=== PATIENT | male | born 1930 | race Asian ===

== ENCOUNTER 2016-07-27 12:34 | Emergency (ER) | payer MEDICARE, BC ==
[~2016-07-27] VITALS: Ht 170.2 cm; Wt 61.0 kg
[2016-07-27 12:39] VITALS: Ht 170.2 cm; Wt 61.0 kg
--- NOTE | 2016-07-27 16:15 | ERA ---
ER Documentation Chief Complaint Date/Time DATE: 07/27/16 TIME: 16:15 Chief Complaint syncopy x 3 days ago HPI The patient is a 85-year-old male, presenting to the ER because of a mechanical fall 3 days ago. He complains of left wrist pain and superficial abrasion on the upper lip. He did not have syncope. He denies fever, chills, neck pain, chest pain, dyspnea, abdominal pain, palpitation, diaphoresis, abdominal pain, dysuria, polyuria. He went to dialysis today where he was sent to the ER for further evaluation due to left wrist pain. He does not smoke, does not drink Past medical history: Chronic kidney disease, hypertension, CAD Past surgical history: CABG, bilateral cataract surgery, TURP ROS All systems reviewed and are negative except as per history of present illness. Physical Exam Vitals Vital Signs Date Time Temp Pulse Resp B/P Pulse Ox O2 Delivery O2 Flow Rate FiO2 07/27/16 17:59 62 18 167/74 100 Room Air 07/27/16 12:39 97.6 71 118 122/58 100 Physical Exam Const: No acute distress. Head: Atraumatic. Eyes: Normal Conjunctiva. ENT: Normal External Ears, Nose and Mouth. Superficial abrasion at the upper lip, no laceration Neck: Full range of motion. No meningismus. Resp: Clear to auscultation bilaterally. Cardio: Regular rate and rhythm, no murmurs. Abd: Soft, non distended, normal bowel sounds, non tender. Skin: No petechiae or rashes. Back: No midline or flank tenderness. Ext: Left wrist and left hand edematous, ecchymotic, no laceration Neur: Awake and alert. No focal deficit Psych: Normal Mood and Affect. Result Diagram: 07/27/16 1648 07/27/16 1648 Results 24 hrs Laboratory Tests Test 07/27/16 16:48 Activated Partial Thromboplast Time 52.8Sec Anion Gap 22 Basophils # 0.010^3/ul Basophils % 0.5% Blood Morphology Comment Blood Urea Nitrogen 72mg/dl Calcium Level 10.4mg/dl Carbon Dioxide Level 24mmol/L Chloride Level 94mmol/L Creatinine 6.80mg/dl Eosinophils # 0.210^3/ul Eosinophils % 2.2% Glucose Level 147mg/dl Hematocrit 35.8% Hemoglobin 12.0g/dl INR International Normalized Ratio 3.17 Lymphocytes # 0.810^3/ul Lymphocytes % 10.8% Mean Corpuscular Hemoglobin 35.2pg Mean Corpuscular Hemoglobin Concent 33.4g/dl Mean Corpuscular Volume 105.2fl Mean Platelet Volume 6.9fl Monocytes # 0.510^3/ul Monocytes % 6.6% Neutrophils # 5.810^3/ul Neutrophils % 79.9% Nucleated Red Blood Cells # 0.010^3/ul Nucleated Red Blood Cells % 0.0/100WBC Platelet Count 73901^3/UL Potassium Level 4.5mmol/L Prothrombin Time 33.0Sec Prothrombin Time Ratio 2.6 Red Blood Count 3.4010^6/ul Red Cell Distribution Width 15.8% Sodium Level 135mmol/L White Blood Count 7.310^3/ul Current Medications Medications (Trade) Dose Ordered Sig/Lalit Route PRN Reason Start Time Stop Time Status Last Admin Dose Admin Diphtheria/ Tetanus/Acell Pertussis (Adacel) 0.5 ml ONCE ONCE IM* 07/27/16 18:30 07/27/16 18:31 Procedures/MDM EKG: Read by emergency physician Rate/Rhythm: Normal Sinus Rhythm 63 beats per min QRS, ST, T-waves: No ST elevation, no T wave inversion, first-degree AV block , nonspecific intraventricular conduction Impression: Abnormal EKG [place] [id number] [facility] Main Line: [phone] DIAGNOSTIC IMAGING REPORT Patient: DANA ARGUELLES : 1930 Age: 85 Sex: M MR #: [id number] DOS: 07/27/16 1624 Ordering MD: VÍCTOR FERNANDES MD Location: E/R Room/Bed: PROCEDURE: XR Left Wrist with Navicular View CLINICAL INDICATION: Pain TECHNIQUE: AP, lateral, and oblique views as well as a carpal navicular view were submitted. COMPARISON: None FINDINGS: Osseous structures: The osseous elements appear osteoporotic but intact with no acute fracture identified. Joint spaces: Moderate degenerative changes seen about the first metacarpal carpal joint space Soft tissues: There is calcification in the triangular fibrocartilage compatible with chondrocalcinosis and vascular calcifications noted. Surgical gifty are seen to project lateral to the distal radius. IMPRESSION: 1. Osteoporosis with the osseous elements intact. 2. Moderate degenerative change seen about the first metacarpal carpal joint space. 3. Chondrocalcinosis seen in the region of the triangular fibrocartilage with atherosclerotic vascular calcification. 4. Surgical gifty project through the soft tissues lateral to the distal radius. Josh Hubbard Physician Date Time Electronically viewed and signed by Physician Darlyn on 07/27/2016 17:20 RH/ CC: VÍCTOR FERNANDES MD [place] [id number] [facility] Main Line: [phone] DIAGNOSTIC IMAGING REPORT Patient: DANA ARGUELLES : 1930 Age: 85 Sex: M MR #: [id number] DOS: 07/27/16 1624 Ordering MD: VÍCTOR FERNANDES MD Location: E/R Room/Bed: PROCEDURE: XR Left Hand CLINICAL INDICATION: Pain TECHNIQUE: AP, oblique, and lateral radiographs were submitted. COMPARISON: None FINDINGS: Osseous structures: The osseous elements appear rarefied but intact. Joint spaces: Moderate osteoarthritic changes seen about the first metacarpal carpal joint space. Soft tissues: There is calcification in the triangular fibrocartilage as well as atherosclerotic vascular calcification. Surgical gifty project lateral to the distal radius. IMPRESSION: 1. Osteoporosis with the osseous structures intact. 2. Moderate degenerative change of the first metacarpal carpal joint space. 3. Chondrocalcinosis in the triangular fibrocartilage with vascular calcification. 4. Surgical gifty project in the soft tissues lateral to the distal radius. Josh Hubbard Physician Date Time Electronically viewed and signed by Physician Darlyn on 07/27/2016 17:26 RH/ CC: VÍCTOR FERNANDES MD [place] [address] [facility] Main Line: [phone] DIAGNOSTIC IMAGING REPORT Patient: DANA ARGUELLES : 1930 Age: 85 Sex: M MR #: [id number] DOS: 07/27/16 1624 Ordering MD: VÍCTOR FERNANDES MD Location: E/R Room/Bed: PROCEDURE: CT Head without. CLINICAL INDICATION: Syncope. TECHNIQUE: The study was performed utilizing a multi-slice, multidetector CT scanner. Direct spiral 1 mm axial sections were obtained through the head without the use of intravenous contrast material. Coronal and sagittal reformats were obtained. The images were reviewed on a PACS workstation. RADIATION DOSE: CTDIvol: 44.5 mGy DLP: 720.2 mGy-cm COMPARISON: No prior studies are available for comparison. FINDINGS: There is no intracranial hemorrhage, extra-axial fluid collection, mass lesion, midline shift or hydrocephalus. There is mild to moderate prominence of the cerebral sulci, lateral and third ventricles. There are benign calcifications in the bilateral basal ganglia, likely idiopathic. There is mild periventricular and subcortical white matter hypodensity. There is moderate arteriosclerotic calcification of the parasellar internal carotid arteries. The villarreal-white matter differentiation is preserved. The basal cisterns are patent. The midline structures are intact. The orbits, calvarium and extracranial soft tissues are normal in appearance. The visualized paranasal sinuses, mastoid air cells and middle ear cavities are normally aerated. IMPRESSION: 1. No acute intracranial abnormality. No intracranial hemorrhage, extra-axial fluid collection, mass lesion or hydrocephalous. 2. Mild to moderate peripheral and central cerebral volume loss. 3. Mild periventricular and subcortical white matter hypodensity, likely related to chronic microangiopathic changes. RPTAT: HGAS .Ghulam Fernandez MD, MD Date Time Electronically viewed and signed by .Ghulam Fernandez MD, MD on 07/27/2016 17: 34 .S/ CC: VÍCTOR FERNANDES MD MEDICAL MAKING DECISION: The patient is a 85-year-old male, presenting with acute left wrist and left hand pain after fall. He did not have syncope. He remains well in th emergency department. The differential diagnoses considered include but are not limited to fracture, contusion, sprain, internal derangement. He was treated with Tdap IM, and a wrist Velcro Departure Diagnosis: Primary Impression: Hand pain, left Additional Impressions: Wrist pain, left Anemia Condition: Good Comments I discussed the findings with the patient. I advised the patient to follow-up with the primary physician in about 1-2 days, sooner if needed and return if any concern. I VÍCTOR FERNANDES MD Jul 27, 2016 16:15
[2016-07-27 17:17] LABS: BASOPHILS % 0.5 % (0.0-2.0); EOSINOPHILS # 0.2 10^3/ul (0.0-0.5); EOSINOPHILS % 2.2 % (0.0-7.0); HEMATOCRIT 35.8 % (42.0-52.0); LYMPHOCYTES # 0.8 10^3/ul (0.8-2.9); LYMPHOCYTES % 10.8 % (15.0-51.0); MEAN CORPUSCULAR HEMOGLOBIN 35.2 pg (29.0-33.0); MEAN CORPUSCULAR HGB CONC 33.4 g/dl (32.0-37.0); MEAN CORPUSCULAR VOLUME 105.2 fl (82.0-101.0); MEAN PLATELET VOLUME 6.9 fl (7.4-10.4); MONOCYTE # 0.5 10^3/ul (0.3-0.9); MONOCYTES % 6.6 % (0.0-11.0); NEUTROPHIL # 5.8 10^3/ul (1.6-7.5); NEUTROPHILS % 79.9 % (39.0-77.0); PLATELET COUNT 170 10^3/UL (140-440); RED CELL DISTRIBUTION WIDTH 15.8 % (11.5-14.5); UNCORRECTED WBC 7.3 10^3/ul (4.8-10.8); WHITE BLOOD COUNT 7.3 10^3/ul (4.8-10.8)
--- NOTE | 2016-07-27 17:20 | RADRPT ---
PROCEDURE: XR Left Wrist with Navicular View CLINICAL INDICATION: Pain TECHNIQUE: AP, lateral, and oblique views as well as a carpal navicular view were submitted. COMPARISON: None FINDINGS: Osseous structures: The osseous elements appear osteoporotic but intact with no acute fracture ident ified. Joint spaces: Moderate degenerative changes seen about the first metacarpal carpal joint space Soft tissues: There is calcification in the triangular fibrocartilage compatible with chondrocalcino sis and vascular calcifications noted. Surgical gifty are seen to project lateral to the distal r adius. IMPRESSION: 1. Osteoporosis with the osseous elements intact. 2. Moderate degenerative change seen about the first metacarpal carpal joint space. 3. Chondrocalcinosis seen in the region of the triangular fibrocartilage with atherosclerotic vascu lar calcification. 4. Surgical gifty project through the soft tissues lateral to the distal radius. Physician Darlyn Date Time Electronically viewed and signed by Physician Darlyn on 07/27/2016 17:20 /
[2016-07-27 17:21] LABS: CONDITION 1; LH ANALYZER COMMENTS 1
[2016-07-27 17:22] LABS: POTASSIUM 4.5 mmol/L (3.5-5.1)
[2016-07-27 17:24] LABS: CREATININE 6.8 mg/dl (0.61-1.24)
[2016-07-27 17:25] LABS: CALCIUM 10.4 mg/dl (8.4-10.2)
--- NOTE | 2016-07-27 17:26 | RADRPT ---
PROCEDURE: XR Left Hand CLINICAL INDICATION: Pain TECHNIQUE: AP, oblique, and lateral radiographs were submitted. COMPARISON: None FINDINGS: Osseous structures: The osseous elements appear rarefied but intact. Joint spaces: Moderate osteoarthritic changes seen about the first metacarpal carpal joint space. Soft tissues: There is calcification in the triangular fibrocartilage as well as atherosclerotic vas cular calcification. Surgical gifty project lateral to the distal radius. IMPRESSION: 1. Osteoporosis with the osseous structures intact. 2. Moderate degenerative change of the first metacarpal carpal joint space. 3. Chondrocalcinosis in the triangular fibrocartilage with vascular calcification. 4. Surgical gifty project in the soft tissues lateral to the distal radius. Physician Darlyn Date Time Electronically viewed and signed by Josh Hubbard Physician on 07/27/2016 17:26 /
[2016-07-27 17:29] LABS: INR 3.17; PT RATIO 2.6
[2016-07-27 17:30] LABS: PARTIAL THROMBOPLASTIN TIME 52.8 Sec (25.0-35.0)
--- NOTE | 2016-07-27 17:35 | RADRPT ---
PROCEDURE: CT Head without. CLINICAL INDICATION: Syncope. TECHNIQUE: The study was performed utilizing a multi-slice, multidetector CT scanner. Direct spira l 1 mm axial sections were obtained through the head without the use of intravenous contrast materia l. Coronal and sagittal reformats were obtained. The images were reviewed on a PACS workstation. RADIATION DOSE: CTDIvol: 44.5 mGyDLP: 720.2 mGy-cm COMPARISON: No prior studies are available for comparison. FINDINGS: There is no intracranial hemorrhage, extra-axial fluid collection, mass lesion, midline shift or hyd rocephalus. There is mild to moderate prominence of the cerebral sulci, lateral and third ventricle s. There are benign calcifications in the bilateral basal ganglia, likely idiopathic. There is mild periventricular and subcortical white matter hypodensity. There is moderate arteriosclerotic calcif ication of the parasellar internal carotid arteries. The villarreal-white matter differentiation is prese rved. The basal cisterns are patent. The midline structures are intact. The orbits, calvarium and extracranial soft tissues are normal in appearance. The visualized paranasal sinuses, mastoid air c ells and middle ear cavities are normally aerated. IMPRESSION: 1. No acute intracranial abnormality. No intracranial hemorrhage, extra-axial fluid collection, ma ss lesion or hydrocephalous. 2. Mild to moderate peripheral and central cerebral volume loss. 3. Mild periventricular and subcortical white matter hypodensity, likely related to chronic microan giopathic changes. RPTAT: HGAS .Ghulam Fernandez MD, Date Time Electronically viewed and signed by .Ghulam Fernandez MD, on 07/27/2016 17:34 .S/
[2016-07-27 17:59] VITALS: BP 167/74; PULSE 62; RESP 18
[2016-07-27] MEDS ORDERED: DIPHTH/TET/ACEL PERTUSS (ADULT) 0.5 ML VIAL IM* ONE (18:30)
== END 2016-07-27 18:41 | disposition home or self-care (01) ==
LOC: E/R 12:34
DX: S69.92XA Unspecified injury of left wrist, hand and finger(s), initial encounter (principal); S00.511A Abrasion of lip, initial encounter; I12.9 Hypertensive chronic kidney disease with stage 1 through stage 4 chronic kidney disease, or unspecified chronic kidney disease; N18.9 Chronic kidney disease, unspecified; I25.10 Atherosclerotic heart disease of native coronary artery without angina pectoris; D64.9 Anemia, unspecified; R55 Syncope and collapse; W19.XXXA Unspecified fall, initial encounter; Y92.9 Unspecified place or not applicable; Z23 Encounter for immunization; Z95.1 Presence of aortocoronary bypass graft
CPT/HCPCS: 36415; 70450; 80048; 85025; 85610; 85730; 90471; 90715; 93005